=== PATIENT | male | born 1975 | race Caucasian/White ===

== ENCOUNTER → 2017-12-01 | Outpatient (CLI) | payer OTHER | END | disposition home or self-care (01) | LOC: PF 07:50 | DX: R06.02 Shortness of breath (principal) | CPT/HCPCS: 94010; 94729 ==

== ENCOUNTER → 2019-05-19 | Day surgery (SDC) | payer OTHER ==
[~2019-05-19] MED LIST: IV RINGERS,LACTATED 1000ML 1,000 ML IV SCH; LIDOCAINE 2% PF 5 ML VIAL. ONE; PROPOFOL 60 ML IV ONE
[2019-05-19 11:36] VITALS: BP 140/64
--- NOTE | 2019-05-23 10:07 | PATHOLOGY ---
[facility] Accession Number: [id number] . 01 Material submitted: . hepatic flexure - HEPATIC FLEXURE POLYP . 01 Clinical history: . Abdominal pain. . 02 Diagnosis: Colon biopsies, hepatic flexure polyp: - Tubular adenoma. . ([facility]; 05/22/2019) S 05/22/2019 1556 Local . 02 Comment: There is no high grade dysplasia or evidence of malignancy. . 02 Electronically signed: . Papo Oh MD, Pathologist NPI- [id number] . 01 Gross description: . Received in formalin labeled "Teddy Ponce, hepatic flexure polyp" is a 1.4 x 0.8 x 0.1 cm aggregate of smart-brown mucosa fragments. The specimen is submitted in A1. ([facility]; 05/20/2019) [facility] 05/20/2019 1004 Local . 02 Pathologist provided ICD-10: D12.3 . 02 CPT . 119515 Specimen Comment: A courtesy copy of this report has been sent to [phone], [phone] Specimen Comment: [id number] Specimen Comment: Report sent to and Performed at: 01 [facility] [address], [place], [place] [id number] MD Jair Valentine MD Phone: [phone] Performed at: 02 [facility] [address] [place], [place] [id number] MD Papo Oh MD Phone: [phone]
== END ==
LOC: ENDOS 09:38
PROVIDERS: ATTEND Internal Medicine Gastroenterology
DX: R19.4 Change in bowel habit (principal); D12.3 Benign neoplasm of transverse colon; K57.30 Diverticulosis of large intestine without perforation or abscess without bleeding; K64.0 First degree hemorrhoids; K21.9 Gastro-esophageal reflux disease without esophagitis; K58.9 Irritable bowel syndrome, unspecified; K25.9 Gastric ulcer, unspecified as acute or chronic, without hemorrhage or perforation; E11.9 Type 2 diabetes mellitus without complications; Z88.0 Allergy status to penicillin; Z72.89 Other problems related to lifestyle; Z98.890 Other specified postprocedural states; Z98.52 Vasectomy status; Z79.84 Long term (current) use of oral hypoglycemic drugs
CPT/HCPCS: 45385; 82962; 88305; J2001; J2704; 45380

== ENCOUNTER 2020-09-10 05:26 | Emergency (ER) | payer OTHER ==
[~2020-09-10] VITALS: Ht 182.9 cm; Wt 125.0 kg
[2020-09-10 06:09] LABS: BASO % 0 % (0-3); CALCIUM 8.8 mg/dL (8.5-10.1); CREATININE 1.1 mg/dL (0.7-1.3); EOS # 0.1 x10^3/uL (0.0-0.7); EOS % 1 % (0-3); GFR 72.7; HEMATOCRIT 51.7 % (39.0-53.0); LYMPH % 35 % (24-48); MEAN CORPUSCULAR HEMOGLOBIN 32 pg (25-35); MEAN CORPUSCULAR HGB CONC 35 g/dL (31-37); MEAN CORPUSCULAR VOLUME 91 fL (79-100); MONO # 0.6 x10^3/uL (0.0-1.1); MONO % 7 % (0-9); NEUT # 4.9 x10^3/uL (1.8-7.7); NEUT % 57 % (31-73); PLATELET COUNT 137 x10^3/uL (140-400); POTASSIUM 3.9 mmol/L (3.5-5.1); RED BLOOD COUNT 5.67 x10^6/uL (4.30-5.70); RED CELL DISTRIBUTION WIDTH 13.2 % (11.5-14.5); WHITE BLOOD COUNT 8.7 x10^3/uL (4.0-11.0)
[2020-09-10 06:15] LABS: ALBUMIN 3.5 g/dL (3.4-5.0); ALBUMIN/GLOBULIN RATIO 1.1 (1.0-1.7); TOTAL BILIRUBIN 0.3 mg/dL (0.2-1.0); TOTAL PROTEIN 6.6 g/dL (6.4-8.2)
--- NOTE | 2020-09-10 07:11 | PHYS DOC ---
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 Patient has history of chronic low back pain due to disc problem. He went to chiropractor 3 weeks ago for adjustment, afterwards the back pain has become more severe. Patient complained of severe pain whenever he walked. Patient said he could not walk much because of pain. Patient denies any bowel or bladd er incontinence. Patient says he has some tingling sensation to his legs bilaterally. Patient went to [place] recently, the long drive after his back with more. Patient said for the last 4 days he has been in bed most of the time, his family have to help him to the bathroom and change his clothes. Patient also has intermittent episodes of blood in his stool. Patient denies any abdominal pain. Patient was evaluated at [facility] in August for bloody stool, and hemoglobin was normal then. Patient is not on any blood thinner. Patient denies any cough, no fever, no trouble breathing, no chest pain. Review of Systems: Review of Systems: Constitutional: Denies fever or chills. [] Eyes: Denies change in visual acuity. [] HENT: Denies nasal congestion or sore throat. [] Respiratory: Denies cough or shortness of breath. [] Cardiovascular: Denies chest pain or edema. [] GI: Denies abdominal pain, nausea, vomiting, positive for trace of blood in his stool. Musculoskeletal: Positive for back pain. Integument: Denies rash. [] Neurologic: Denies headache, focal weakness or sensory changes. [] Endocrine: Denies polyuria or polydipsia. [] Lymphatic: Denies swollen glands. [] Psychiatric: Denies depression or anxiety. [] Heart Score: C/O Chest Pain: N/A Risk Factors: Risk Factors: DM, Current or recent (<one month) smoker, HTN, HLP, family history of CAD, obesity. Risk Scores: Score 0 - 3: 2.5% MACE over next 6 weeks - Discharge Home Score 4 - 6: 20.3% MACE over next 6 weeks - Admit for Clinical Observation Score 7 - 10: 72.7% MACE over next 6 weeks - Early Invasive Strategies Allergies: Allergies: Allergies Coded Allergies Type Severity Reaction Last Updated Verified Penicillins Allergy Unknown Anaphylaxis 05/19/19 Yes Physical Exam: PE: Constitutional: Well developed, well nourished, no acute distress, non-toxic appearance. [] HENT: Normocephalic, atraumatic, bilateral external ears normal, oropharynx moist, no oral exudates, nose normal. [] Eyes: PERRLA, EOMI, conjunctiva normal, no discharge. [] Neck: Normal range of motion, no tenderness, supple, no stridor. [] Cardiovascular:Heart rate regular rhythm, no murmur [] Lungs & Thorax: Bilateral breath sounds clear to auscultation [] Abdomen: Bowel sounds normal, soft, no tenderness, no masses, no pulsatile masses. [] Skin: Warm, dry, no erythema, no rash. [] Back: There is no CVA tenderness to palpation, strength midline tender to palpation at L4 L5-S1 area, there is no bony step-off. Extremities: No tenderness, no cyanosis, no clubbing, ROM intact, no edema. Patient can move his extremity without any problem when he is lying in bed. Neurologic: Alert and oriented X 3, normal motor function, normal sensory function, no focal deficits noted. [] Psychologic: Affect normal, judgement normal, mood normal. [] Current Patient Data: Labs: Laboratory Tests Test 09/10/20 05:40 White Blood Count 8.7 x10^3/uL (4.0-11.0) Red Blood Count 5.67 x10^6/uL (4.30-5.70) Hemoglobin 18.0 g/dL (13.0-17.5) H Hematocrit 51.7 % (39.0-53.0) Mean Corpuscular Volume 91 fL (79-100) Mean Corpuscular Hemoglobin 32 pg (25-35) Mean Corpuscular Hemoglobin Concent 35 g/dL (31-37) Red Cell Distribution Width 13.2 % (11.5-14.5) Platelet Count 137 x10^3/uL (140-400) L Neutrophils (%) (Auto) 57 % (31-73) Lymphocytes (%) (Auto) 35 % (24-48) Monocytes (%) (Auto) 7 % (0-9) Eosinophils (%) (Auto) 1 % (0-3) Basophils (%) (Auto) 0 % (0-3) Neutrophils # (Auto) 4.9 x10^3/uL (1.8-7.7) Lymphocytes # (Auto) 3.0 x10^3/uL (1.0-4.8) Monocytes # (Auto) 0.6 x10^3/uL (0.0-1.1) Eosinophils # (Auto) 0.1 x10^3/uL (0.0-0.7) Basophils # (Auto) 0.0 x10^3/uL (0.0-0.2) Sodium Level 138 mmol/L (136-145) Potassium Level 3.9 mmol/L (3.5-5.1) Chloride Level 102 mmol/L (98-107) Carbon Dioxide Level 32 mmol/L (21-32) Anion Gap 4 (6-14) L Blood Urea Nitrogen 20 mg/dL (8-26) Creatinine 1.1 mg/dL (0.7-1.3) Estimated GFR (Cockcroft-Gault) 72.7 BUN/Creatinine Ratio 18 (6-20) Glucose Level 217 mg/dL (70-99) H Calcium Level 8.8 mg/dL (8.5-10.1) Total Bilirubin 0.3 mg/dL (0.2-1.0) Aspartate Amino Transferase (AST) 24 U/L (15-37) Alanine Aminotransferase (ALT) 39 U/L (16-63) Alkaline Phosphatase 107 U/L (46-116) Total Protein 6.6 g/dL (6.4-8.2) Albumin 3.5 g/dL (3.4-5.0) Albumin/Globulin Ratio 1.1 (1.0-1.7) Laboratory Tests 09/10/20 05:40 Laboratory Tests 09/10/20 05:40 Vital Signs: Vital Signs Date Time Temp Pulse Resp B/P (MAP) Pulse Ox O2 Delivery O2 Flow Rate FiO2 09/10/20 06:31 78 18 142/75 (97) 95 Room Air 09/10/20 05:30 97.6 97.6 EKG: EKG: [] Radiology/Procedures: Radiology/Procedures: [][facility] [address] [place] [address] IMAGING REPORT Signed PATIENT: RAMESH BECERRA ACCOUNT: [id number] : 1975 LOCATION: ER AGE: 44 SEX: M EXAM STATUS: REG ER ORD. PHYSICIAN: CEDRIC MALDONADO DO REASON: lower back pain after chiropractor adjustment 3 weeks ago PROCEDURE: LUMBAR SPINE 2-3V XR LUMBAR SPINE 2-3V DATE: 09/10/2020 7:22 AM INDICATION: lower back pain after chiropractor adjustment 3 weeks ago COMPARISON: None. FINDINGS: Five non-rib bearing lumbar-type vertebral bodies are present. Bones/Alignment: No evidence of acute compression fracture. There is no listhes is. Joints: Mild degenerative disc disease. Miscellaneous: None. IMPRESSION: No evidence of acute compression fracture. Electronically signed by: Hair Matos MD (09/10/2020 8:14 AM) [id number] DICTATED and SIGNED BY: HAIR MATOS MD DATE: 09/10/20 [id number] Course & Med Decision Making: Course & Med Decision Making Pertinent Labs and Imaging studies reviewed. (See chart for details) Patient is a 44-year-old male who presented to ER due to chronic low back pain. Patient claimed that he could not walk because of pain. X-ray did not show any acute problem, patient was observed to walk to the bathroom using the toilet without any problem without any assistance. Patient is scheduled to follow-up with a neurologist tomorrow Dr. Elsy Zamora. [place] Disclaimer: Dheeraj Disclaimer: This electronic medical record was generated, in whole or in part, using a voice recognition dictation system. Departure Departure Impression: Primary Impression: Lower back pain Disposition: 01 DC HOME SELF CARE/HOMELESS Condition: IMPROVED Referrals: OSCAR LEVINE MD (PCP) ELSY CORONEL MD PLEASE FOLLOW UP WITH YOUR DOCTOR SCHEDULED FOR TOMORROW. Patient Instructions: Back Pain, Adult Additional Instructions: Thank you for visiting our Emergency Department. We appreciate you trusting us with your care. If any additional problems come up don't hesitate to return to visit us. Please follow up with your primary care provider so they can plan additional care if needed and know about the problem that you had. If symptoms worsen come back to the Emergency Department. Any concerning symptoms that start such as chest pain, shortness of air, weakness or numbness on one side of the body, running high fevers or any other concerning symptoms return to the ER. Scripts Cyclobenzaprine Hcl (CYCLOBENZAPRINE HCL) 10 Mg Tablet 1 TAB PO TID PRN for MUSCLE SPASMS, #20 TAB Prov: CEDRIC MALDONADO DO 09/10/20 Tramadol Hcl (TRAMADOL HCL) 50 Mg Tablet 50 MG PO Q6HRS PRN for PAIN, #20 TAB Prov: CEDRIC MALDONADO DO 09/10/20 CEDRIC MALDONADO DO Sep 10, 2020 07:11
--- NOTE | 2020-09-10 08:16 | RAD ---
XR LUMBAR SPINE 2-3V DATE: 09/10/2020 7:22 AM INDICATION: lower back pain after chiropractor adjustment 3 weeks ago COMPARISON: None. FINDINGS: Five non-rib bearing lumbar-type vertebral bodies are present. Bones/Alignment: No evidence of acute compression fracture. There is no listhesis. Joints: Mild degenerative disc disease. Miscellaneous: None. IMPRESSION: No evidence of acute compression fracture. Electronically signed by: Shailesh Matos MD (09/10/2020 8:14 AM) [id number]
[2020-09-10] MEDS ORDERED: ORPHENADRINE CITRATE 60 MG/2 ML VIAL. IM ONE (09:30)
[2020-09-10] MEDS ORDERED: MORPHINE SULFATE 4 MG/ML VIAL. IV ONE (09:30)
[2020-09-10 09:31] VITALS: BP 143/86
[2020-09-10] MEDS ORDERED: ONDANSETRON ODT 4 MG TAB.RAPDIS. ONE (10:10)
[2020-09-10] MEDS ORDERED: ONDANSETRON ODT 4 MG TAB.RAPDIS. PO ONE ×2 (10:15)
[2020-09-10] MEDS ORDERED: CYCL10TA2 PO (10:18)
[2020-09-10] MEDS ORDERED: TRAM50TA PO (10:18)
== END 2020-09-10 10:21 | disposition home or self-care (01) ==
LOC: ER 05:26
DX: M54.5 Low back pain (principal); G89.29 Other chronic pain; E11.9 Type 2 diabetes mellitus without complications; F17.200 Nicotine dependence, unspecified, uncomplicated; Z90.89 Acquired absence of other organs; Z88.0 Allergy status to penicillin
CPT/HCPCS: 36415; 72100; 80053; 85025; 86850; 86900; 86901; 96372; 96374; 99285; J2270; J2360

== ENCOUNTER → 2020-10-03 | Outpatient (CLI) | payer OTHER ==
[2020-09-10 09:31] VITALS: BP 143/86
[~2020-10-03] MED LIST changes: +ASPI-630 PO; +CYCL10TA2 PO; +DAPA5TAB PO; -IV RINGERS,LACTATED 1000ML 1,000 ML IV SCH; -LIDOCAINE 2% PF 5 ML VIAL. ONE; -PROPOFOL 60 ML IV ONE; +TRAM50TA PO
--- NOTE | 2020-10-03 13:03 | PDOC1 ---
INITIAL PAIN CONSULT DATE OF SERVICE: DOS: DATE: 10/03/20 TIME: 12:55 CHIEF COMPLAINT: Chief Complaint: Low back and bilateral lower extremity pain left greater than right HISTORY OF PRESENT ILLNESS: 44-year-old male presents history of pain low back bilateral lower extremities for about 2 months after having some chiropractic treatment for his back pain the pain got much worse and has began spreading down to the lower extremities more on the left than the right but present bilaterally patient reports it is difficult to walk he is having difficulty with any weightbearing currently getting worse over the past 2 months patient reports that it is worse with anthony ding walking changing positions trying to get up in the morning is awakening from sleep frequently at least every 2 hours patient reports it does affect his bowel bladder control no incontinence but has had some increased urgency with urination patient reports it does affect his ability walk significantly he is using a walker or crutches when he can and has a crutch with him today. Patient has done chiropractic manipulations also doing stretching strengthening exercises currently which helped temporarily as well taking tramadol as well as [id number] Advil and Tylenol without significant reduction in pain. Patient reports the pain is across the low back and the bilateral lower extremities posterior gluteus posterior lateral thigh anterior thigh especially on the left medial lower legs into the calves as well bilaterally patient reports is constant sharp stabbing in the back shooting and throbbing in the legs tingling in the leg with numbness as well changes with activity cramping in the back also. Patient reports no loss of motor function but significant fatigability and significant instability with walking and standing even with his crutches or walker. She did have an MRI scan of the lumbar spine dated October 02, 2020 showing multilevel degenerative change mild central canal stenosis at T11-12 and effacement of left lateral recess at L2-3 with moderate bilateral foraminal stenosis and effacement of the left lateral recess at L3-4 and mild bilateral foraminal stenosis and mild central canal stenosis with effacement of the left lateral recess at L4-5 patient has left greater than right foraminal to extrarenal disc retrusion at L3-4 and L4-5 shows broad-based left paracentral to lateral recess disc protrusion with right foraminal to extraforaminal disc pro trusion as well. PAST MEDICAL HISTORY: PMH: Arthritis, type 2 diabetes, cigarette smoking PREVIOUS SURGERIES: Past Surgical Hx: Appendectomy 2017, tonsillectomy as a child CURRENT MEDICATIONS: Current Meds: Active Scripts Medications Dose Route/Sig Max Daily Dose Days Date Category Aspirin 81 Mg Tab.chew 1 Tab PO DAILY 10/03/20 Reported Farxiga (Dapagliflozin Propanediol) 5 Mg Tablet 5 Mg PO DAILY 10/03/20 Reported Cyclobenzaprine Hcl 10 Mg Tablet 1 Tab PO TID PRN 09/10/20 Rx Tramadol Hcl 50 Mg Tablet 50 Mg PO Q6HRS PRN 09/10/20 Rx ALLERGIES; Allergies: Coded Allergies: Penicillins (Verified Allergy, Unknown, Anaphylaxis, 05/19/19) FAMILY HISTORY: Family Hx: No major medical problems or conditions that he is aware of SOCIAL HISTORY: Social Hx: Patient smokes about 1 pack cigarettes a day and has a past 25 years smokes marijuana daily does not drink alcohol is lives with his spouse lives locally in [facility] works as an trim mechanic. REVIEW OF SYSTEMS: ROS: Positive for those items mentioned in history of present illness, all systems are reviewed, otherwise negative ,and are complete full and well-documented on patient's chart. PHYSICAL EXAM: VS: Blood pressure is 155/93 pulse 94 respirations 18 temperature 98.6 F height is 5 foot 11 inches weight is 290 pounds PE: PHYSICAL EXAMINATION: GENERAL: The patient is awake, alert, oriented, appropriate, very pleasant demeanor, patient accompanied by his . HEENT: Shows normocephalic, atraumatic. Extraocular movements are intact and symmetrical. Oral cavity: Mucous membranes moist and pink. Dentition is intact. NECK: Shows anterior throat supple without palpable lymphadenopathy noted. Swallow reflex symmetrical. CHEST: Shows normal on inspection. Breath sounds are clear bilaterally, no rales rhonchi or wheezes auscultated. HEART: Shows S1, S2 clear. No murmurs auscultated. ABDOMEN: Soft, nontender, nondistended, obese. No palpable organomegaly is noted. No rebound or guarding demonstrated. BACK: Shows spine grossly in the midline. Normal-appearing cervical lordotic curvature. There is slightly increased thoracic kyphosis, some minor flattening of the lumbar lordotic curvature. Lumbar paraspinous muscles show symmetrical on inspection, on palpation shows some moderate tenderness diffusely throughout the upper, middle and lower distribution of the paraspinous muscles bilaterally and also into the lower thoracic paraspinous musculature, firm and tender, but without specific trigger points, without radiation of pain. The patient has good rotational motion of the lumbar spine, both laterally as well as extension and flexion without significant difficulty. EXTREMITIES: Lower extremities show deep tendon reflexes 1+ in the patellar and tendo calcaneus tendons. Motor exam is 4 on a scale of 5 with right dorsiflexion, extension, quadriceps and hamstring flexion and 5/5 on the left. Peripheral pulses are 1 posterior tibial. No peripheral edema is noted bilate rally. Lower extremities are warm and dry to touch, equal in color and appearance. Straight leg raise noted to be positive bilaterally at approximately 45 degrees decreased with knee flexion. Gaenslen's and Sheng's maneuvers are negative bilaterally. The patient is able to stand, but needs assistance getting up from a seated position using the arms of the chair, has an unstable gait which is slightly wide stance and is using a crutch to ambulate on visit today. SKIN: Shows warm and dry, good turgor. No edema. No sores, rashes or bruising throughout. IMPRESSION: Impression: 44-year-old male with with history of low back bilateral lower extremity pain in a radicular fashion following an L4-5 dermatomal distribution. MRI scan lumbar spine as noted Arthritis Type 2 diabetes Cigarette smoking Plan: Options were discussed with patient patient spouse who accompanied him at his visit today. We discussed medication management continue physical therapies and interventional techniques. Patient like to pursue interventional techniques. We discussed a lumbar epidural steroid injection using description as well as anatomical models to describe the procedure. Patient will wait for preauthorization with his insurance provider, once this is obtained we will plan on translaminar approach L4-5 level lumbar epidural steroid injection. In meantime patient will continue with stretching strength exercises as well as oral analgesics as currently. TRES TREJO MD Oct 03, 2020 13:03
== END | disposition home or self-care (01) ==
LOC: PNCL 10:22
PROVIDERS: ATTEND Anesthesiology
DX: M54.5 Low back pain (principal); M79.605 Pain in left leg; M79.604 Pain in right leg; M19.90 Unspecified osteoarthritis, unspecified site; E11.9 Type 2 diabetes mellitus without complications; G47.30 Sleep apnea, unspecified; K21.9 Gastro-esophageal reflux disease without esophagitis; F17.210 Nicotine dependence, cigarettes, uncomplicated; Z79.899 Other long term (current) drug therapy; Z98.890 Other specified postprocedural states; Z88.0 Allergy status to penicillin
CPT/HCPCS: G0463

== ENCOUNTER → 2020-10-17 | Outpatient (CLI) | payer OTHER ==
[~2020-10-17] MED LIST changes: +IOHEXOL 180 MG/ML 10 ML VIAL. ONE; +methylPREDNISolone ACETATE 40 MG/ML VIAL. ONE; +methylPREDNISolone ACETATE 80 MG/ML VIAL. ONE
--- NOTE | 2020-10-17 10:48 | PDOC ---
Progress Note - Pain Clinic Date of Service: DOS: DATE: 10/17/20 TIME: 10:46 Diagnosis: Dx: Lumbar radiculopathy with lumbar degenerative disc disease and lumbar spinal stenosis History or Present Illness: HPI: 44-year-old male returns for follow-up status post initial evaluation preauthorization for lumbar epidural steroid injection. Patient is obtained that now would like to proceed. Patient reports still in the low back bilateral lower extremities posterior gluteus posterior lateral thigh lateral anterior thigh anterior medial thighs and calves rated as a 9 on scale 10 is worse for the past week 5-8 on average and affords least is a 5 today patient reports no new motor or sensory deficit still significant pain with walking standing changing positions better with sitting or laying down generally awaken from sleep at least 2-3 times a night patient reports no new motor or sensory deficits no new bowel or bladder incontinence scribes pain is tingling and burning also sharp in the low back and radiating the lower extremities states can be shooting unbearable at times. Physical Exam: VS: Blood pressure is 157/87 pulse 91 respirations 18 temperature 98 F weight is 288 pounds PE: PHYSICAL EXAMINATION: GENERAL: The patient is awake, alert, oriented, appropriate, very pleasant demeanor HEENT: Shows normocephalic, atraumatic. Extraocular movements are intact and symmetrical. NECK: Shows anterior throat supple without palpable lymphadenopathy noted. Swallow reflex symmetrical. CHEST: Shows normal on inspection. Breath sounds are clear bilaterally. HEART: Shows S1, S2 clear. No murmurs auscultated. ABDOMEN: Soft, nontender, nondistended, obese. No palpable organomegaly is noted. No rebound or guarding demonstrated. BACK: Shows spine grossly in the midline. Normal-appearing cervical lordotic curvature. There is slightly increased thoracic kyphosis, some minor flattening of the lumbar lordotic curvature. Lumbar paraspinous muscles show symmetrical on inspection, on palpation shows some moderate tenderness diffusely throughout the upper, middle and lower distribution of the paraspinous muscles, but without specific trigger points, without radiation of pain. The patient has good rotational motion of the lumbar spine, both laterally as well as extension and flexion without significant difficulty. EXTREMITIES: Lower extremities show deep tendon reflexes 1+ in the patellar and tendo calcaneus tendons. Motor exam is full on a scale of 5 with right dorsiflexion, extension, quadriceps and hamstring flexion and 5/5 on the left. Peripheral pulses are 1+ posterior tibial. No peripheral edema is noted bila terally. Lower extremities are warm and dry to touch, equal in color and appearance. SKIN: Shows warm and dry, good turgor. No edema. No sores, rashes or bruising throughout. Procedure: Procedure: Options were discussed with the patient. Patient's old chart was reviewed his current medication regimen updated current review of systems updated today as well. We will proceed with a lumbar epidural steroid injection today with fluoroscopic guidance. Risks were discussed including but not limited to: Bleeding, infection, possibility of epidural hematoma and subsequent neurological compromise, dural puncture, headaches, spinal cord and/or nerve damage, side effects of steroid medication, and poor results regarding pain control. Patient understands and wished to proceed. Patient will return to clinic in approximate 2 weeks for follow-up, was counseled as to return appointment active level and side effects to be aware of. Medication Injected: Med Injected: Procedure is lumbar epidural steroid injection under local anesthetic using sterile prep and drape at the L4-5 level using C-arm fluoroscopic guidance in both AP and lateral views medications injected is 120 mg Depo-Medrol +10mL preservative-free normal saline and 2 mL contrast- condition at discharge is stable patient tolerated procedure well had no complications. Condition at Discharge: Condition at Discharge: Condition at discharge stable, patient tolerated procedure well and had no complications. TRES TREJO MD October 17, 2020 10:48
== END | disposition home or self-care (01) ==
LOC: PNCL 09:59
PROVIDERS: ATTEND Anesthesiology
DX: M51.16 Intervertebral disc disorders with radiculopathy, lumbar region (principal); M48.061 Spinal stenosis, lumbar region without neurogenic claudication; K21.9 Gastro-esophageal reflux disease without esophagitis; E66.9 Obesity, unspecified; E11.9 Type 2 diabetes mellitus without complications; F17.210 Nicotine dependence, cigarettes, uncomplicated; Z79.899 Other long term (current) drug therapy; Z79.82 Long term (current) use of aspirin; Z98.890 Other specified postprocedural states; Z88.0 Allergy status to penicillin
CPT/HCPCS: 62323; J1030; J1040; Q9965

== ENCOUNTER → 2021-06-12 | Outpatient (CLI) | payer OTHER ==
[~2021-06-12] MED LIST changes: +CYCL10TA19 PO; -CYCL10TA2 PO; +IBUP200T58 PO; -IOHEXOL 180 MG/ML 10 ML VIAL. ONE; -methylPREDNISolone ACETATE 40 MG/ML VIAL. ONE; -methylPREDNISolone ACETATE 80 MG/ML VIAL. ONE
--- NOTE | 2021-06-12 08:42 | PDOC ---
Progress Note - Pain Clinic Date of Service: DOS: DATE: 06/12/21 TIME: 08:36 Diagnosis: Dx: Lumbar radiculopathy with lumbar degenerative disease and lumbar spinal stenosis History or Present Illness: HPI: 45-year-old male last seen October 17, 2020 with lumbar epidural steroid injection with about 75% improvement for the first month or so following the injection patient reports the pain gradually returned to the point where he was having difficulty getting out of bed and missed his last 2 scheduled appointments because of the pain most recently May 2021 patient reports that the pain returned after about a month in the low back and into the right lower extremity posterior gluteus posterior lateral thigh lateral anterior thigh anteromedial thigh medial lower leg as well as across the back patient reports its difficult now with walking but he is able to get around to some extent patient reports no loss of motor function but significant fatigability of the right lower extremity patient reports after the injection though he is increasing his distance walking doing work activities household activities travel with greater ease sleeping much better now it is affecting all of these activities significantly patient reports takes about hour to get ready in the morning because is difficult to put on his close issue secondary to the pain patient reports he is waking up from sleep about every 1-1/2 hours as well patient rates his pain as 8 on scale 10 is worse over the past week for an average to its least is a 7 today patient ports sharp tight shooting tingling burning cramping can be severe on and off in intensity in the right lower extremity and the low back. Patient continues to do stretching and strengthening exercises from previous physical therapy as well as walking as tolerated using a cane at times but does not have that with him today. Patient has been applying heat packs as well as ice packs to the low back and hip which are helpful but only temporarily as well. Patient also taking [id number] analgesics Tylenol and ibuprofen ibuprofen seems to be helping more than the Tylenol but not to a great extent either. We reviewed patient's MRI scan with him showing significant broad-based protrusion at L45 with bilateral foraminal stenosis and abutment of near abutment of the exiting right greater than left L4 nerve roots. Patient reports no loss of motor function but significant fatigability specially the right lower extremity weakness in both legs as well. Patient reports no bowel or bladder incontinence. Physical Exam: VS: Blood pressure is 167/99 pulse 91 respirations 20 temperature is 98.5 F weight is 306 pounds PE: PHYSICAL EXAMINATION: GENERAL: The patient is awake, alert, oriented, appropriate, very pleasant in demeanor HEENT: Shows normocephalic, atraumatic. Extraocular movements are intact and symmetrical. Oral cavity: Mucous membranes moist and pink. Dentition is intact. NECK: Shows anterior throat supple without palpable lymphadenopathy noted. Swallow reflex symmetrical. CHEST: Shows normal on inspection. Breath sounds are clear bilaterally, distant but no rales or rhonchi auscultated. HEART: Shows S1, S2 clear. No murmurs auscultated. ABDOMEN: Soft, nontender, nondistended. No palpable organomegaly is noted. BACK: Shows spine grossly in the midline. Normal-appearing cervical lordotic curvature. There is slightly increased thoracic kyphosis, some minor flattening of the lumbar lordotic curvature. Lumbar paraspinous muscles show symmetrical on inspection, on palpation shows some moderate tenderness diffusely throughout the upper, middle and lower distribution of the paraspinous muscles, but without specific trigger points, without radiation of pain. The patient has good rotational motion of the lumbar spine, both laterally as well as extension and flexion without significant difficulty. No tenderness over the spinous processes, sacrum or sacroiliac regions. EXTREMITIES: Lower extremities show deep tendon reflexes 1+ in the patellar and tendo calcaneus tendons. Motor exam is 4 on a scale of 5 with right dorsiflexion, extension, quadriceps and hamstring flexion and 5/5 on the left. Peripheral pulses are 1+ posterior tibial. No peripheral edema is noted bilaterally. Lower extremities are warm and dry to touch, equal in color and appearance. Straight leg raise noted to be positive on the right at approximately 40 degrees, decreased knee flexion left side is negative. SKIN: Shows warm and dry, good turgor. No edema. No sores, rashes or bruising throughout. Procedure: Procedure: Options were discussed with the patient. Vaginal chart was used current medication regimen updated current review of systems updated today as well. We will preauthorize patient for lumbar epidural steroid injection did very well after the first injection with pain returning out significantly and L4-5 dermatomal distribution in the right lower extremity. Once approved, patient will return for translaminar approach lumbar epidural steroid injection at the L4-5 level using fluoroscopic guidance. In the meantime patient will continue with stretching and strengthening exercises walking as tolerated as well as we will call in a Medrol Dosepak for him with instructions side effects were discussed with the medication. Medication Injected: Med Injected: None Condition at Discharge: Condition at Discharge: Condition at discharge is stable. TRES TREJO MD Jun 12, 2021 08:42
== END | disposition home or self-care (01) ==
LOC: PNCL 08:10
PROVIDERS: ATTEND Anesthesiology
DX: M51.16 Intervertebral disc disorders with radiculopathy, lumbar region (principal); M48.061 Spinal stenosis, lumbar region without neurogenic claudication; G47.30 Sleep apnea, unspecified; K21.9 Gastro-esophageal reflux disease without esophagitis; E11.9 Type 2 diabetes mellitus without complications; F17.210 Nicotine dependence, cigarettes, uncomplicated; Z79.899 Other long term (current) drug therapy; Z98.890 Other specified postprocedural states; Z88.0 Allergy status to penicillin; Z79.82 Long term (current) use of aspirin
CPT/HCPCS: 99212; G0463

== ENCOUNTER → 2021-06-26 | Outpatient (CLI) | payer OTHER ==
[~2021-06-26] MED LIST changes: +DAPA10TA PO
--- NOTE | 2021-06-26 09:02 | PDOC ---
Progress Note - Pain Clinic Date of Service: DOS: DATE: 06/26/21 TIME: 08:57 Diagnosis: Dx: Lumbar radiculopathy with lumbar degenerative disease and lumbar spinal stenosis Diabetes type 2 History or Present Illness: HPI: 45-year-old male returns with pain complaints in the low back and the right lower extremity in the posterior gluteus posterior lateral thigh lateral anterior thigh anteromedial thigh medial lower leg as well as into the foot on the right side patient reports its getting worse with walking standing changing positions patient reports his pain is an 8 on scale 10 is worse over the past week 6 on average 4 to [place] is a 6 today patient reports that sharp and tight in the back shooting the leg tingling stabbing can be constant and severe with walking and standing patient reports is better with sitting or lying down but wakes him from sleep about every 3-4 hours over the past week. Patient reports no loss of motor function with significant fatigability in the right lower extremity. Patient also has complaints of significant abdominal pain and radiating pain into the right groin which is new patient was seen in the ER last week and had a CT scan which we reviewed with him today showing no significant acute or abnormal findings. Patient also reports some increased urinary frequency and even some degree of incontinence with the bladder when the pain in his back is at its worst. Patient reports he has had multiple CT scans of the abdomen and they all come out normal and he notices the pain more when his back and leg is hurting than otherwise. Patient also reports blood sugars elevated as he is type II diabetic, and discussed the importance of monitoring this after today's injection as the steroid medication will elevate the blood sugar significantly elevated and persistently elevated to check with his primary physician for additional medication if necessary to control the blood sugar. P atient voices understanding. Physical Exam: VS: Blood pressure is 137/89 pulse 94 respirations 20 temperature 98.1 F weight is 308 pounds. PE: PHYSICAL EXAMINATION: GENERAL: The patient is awake, alert, oriented, appropriate, very pleasant in demeanor HEENT: Shows normocephalic, atraumatic. Extraocular movements are intact and symmetrical. Oral cavity: Mucous membranes moist and pink. Dentition is intact. NECK: Shows anterior throat supple without palpable lymphadenopathy noted. Swallow reflex symmetrical. CHEST: Shows normal on inspection. Breath sounds are clear bilaterally, coarse but no rales or rhonchi auscultated. HEART: Shows S1, S2 clear. No murmurs auscultated. ABDOMEN: Soft, nontender, nondistended, obese. No palpable organomegaly is noted. BACK: Shows spine grossly in the midline. Normal-appearing cervical lordotic curvature. There is slightly increased thoracic kyphosis, some minor flattening of the lumbar lordotic curvature. Lumbar paraspinous muscles show symmetrical on inspection, on palpation shows some moderate tenderness diffusely throughout the upper, middle and lower distribution of the paraspinous muscles, but without specific trigger points, without radiation of pain. The patient has good rotational motion of the lumbar spine, both laterally as well as extension and flexion without significant difficulty. EXTREMITIES: Lower extremities show deep tendon reflexes 1+ in the patellar and tendo calcaneus tendons. Motor exam is 4 on a scale of 5 with right dorsiflexion, extension, quadriceps and hamstring flexion and 5/5 on the left. Peripheral pulses are 1+ posterior tibial. No peripheral edema is noted bilaterally. Lower extremities are warm and dry. SKIN: Shows warm and dry, good turgor. No edema. No sores, rashes or bruising throughout. Procedure: Procedure: Options were discussed with patient. Patient's old chart was reviewed his current medication regimen updated current review of systems updated today as well. We will proceed with a lumbar epidural steroid injection today with fluoroscopic guidance. Risks were discussed including but not limited to: Bleeding, infection, possibility of epidural hematoma and subsequent neurologica l compromise, dural puncture, headaches, spinal cord and/or nerve damage, side effects of steroid medication, and poor results regarding pain control. Patient understands and wished to proceed. Patient return to the clinic in approximate 2 weeks for follow-up, was counseled as return appointment, activity level, and side effects beware of, especially elevated blood glucose. Medication Injected: Med Injected: Procedure is lumbar epidural steroid injection under local anesthetic using sterile prep and drape at the L4-5 level using C-arm fluoroscopic guidance in both AP and lateral views medications injected is 120 mg Depo-Medrol +10mL preservative-free normal saline and 2 mL contrast- condition at discharge is stable patient tolerated procedure well had no complications. Condition at Discharge: Condition at Discharge: Condition at discharge stable, patient tolerated the procedure well and had no complications. TRES TREJO MD Jun 26, 2021 09:02
--- NOTE | 2021-06-26 09:03 | PDOC4 ---
Procedure Note: ICD 10 Code: ICD 10 Code: M54.16 M51.36 M48.06 Procedure Note: Patient was consented for lumbar epidural steroid injection with fluoroscopic guidance. Risks were discussed including but not limited to: Bleeding, infection, possibility of epidural hematoma and subsequent neurological compromise, dural puncture, headaches, spinal cord and/or nerve damage, side effects of steroid medication, and poor results regarding pain control. Patient understands and wished to proceed. Procedure is lumbar epidural steroid injection under local anesthetic using ster ile prep and drape at the L4-5 level using C-arm fluoroscopic guidance in both AP and lateral views medications injected is 120 mg Depo-Medrol +10mL preservative-free normal saline and 2 mL contrast- condition at discharge is stable patient tolerated procedure well had no complications. TRES TREJO MD Jun 26, 2021 09:03
== END | disposition home or self-care (01) ==
LOC: PNCL 08:21
PROVIDERS: ATTEND Anesthesiology
DX: M51.16 Intervertebral disc disorders with radiculopathy, lumbar region (principal); M48.061 Spinal stenosis, lumbar region without neurogenic claudication; E11.9 Type 2 diabetes mellitus without complications; G47.30 Sleep apnea, unspecified; K21.9 Gastro-esophageal reflux disease without esophagitis; F17.210 Nicotine dependence, cigarettes, uncomplicated; Z79.82 Long term (current) use of aspirin; Z79.899 Other long term (current) drug therapy; Z98.890 Other specified postprocedural states; Z88.0 Allergy status to penicillin
CPT/HCPCS: 62323

== ENCOUNTER → 2021-07-10 | Outpatient (CLI) | payer OTHER ==
--- NOTE | 2021-07-10 09:05 | PDOC ---
Progress Note - Pain Clinic Date of Service: DOS: DATE: 07/10/21 TIME: 08:59 Diagnosis: Dx: Lumbar radiculopathy with lumbar degenerative disc disease and lumbar spinal stenosis Diabetes type 2 History or Present Illness: HPI: 45-year-old male returns for follow-up status post lumbar epidural steroid injection x1 June 26, 2021. Patient reports about 75% improvement and still currently improved with pain low back and right lower extremity still some pain in the low back and the right leg but the twitching sensation is now gone out of the leg he still having some leg cramps which started few days after the injection but are still present patient reports it is a cramping sensation in the back and the right leg posterior gluteus posterior lateral thigh lateral anterior thigh anteromedial thigh and medial and posterior calf on the right side much better with standing walking patient has been improving his distance walking doing household activities especially work activities with greater ease and comfort as he is on his feet most of his working day as patient works as an automotive production worker. Patient reports he has been tolerating activity much better much greater duration with walking especially standing with greater ease and comfort is also decreasing the amount of Advil that he has been taking significantly. Patient reports occasionally when he is on his feet he does "drag my foot some" on the right side but no overt motor loss no stumbling or falls. Patient scribes the pain is cramping in the back tingling burning the leg tightness shooting at times can be constant severe with standing for prolonged periods but again doing much better after the last injection. Patient rates his pain as a 5 on a scale 10 is worse over the past week 2 on average 1 its least is a 2 today. Prolonged sitting can exacerbate the pain but not the same degree as standing. Patient reports no bowel or bladder incontinence. Patient reports he is following up with his primary care physician today as his blood sugar has been consistently elevated and they are discussing new alternative treatment strategies for this. Physical Exam: VS: Blood pressure is 144/85 pulse 71 respirations 18 temperature 90.1 F weight is 299 pounds. PE: PHYSICAL EXAMINATION: GENERAL: The patient is awake, alert, oriented, appropriate, very pleasant in demeanor HEENT: Shows normocephalic, atraumatic. Extraocular movements are intact and symmetrical. Oral cavity: Mucous membranes moist and pink. Dentition is intact. NECK: Shows anterior throat supple without palpable lymphadenopathy noted. Swallow reflex symmetrical. CHEST: Shows normal on inspection. Breath sounds are clear bilaterally, distant and coarse but no rales or rhonchi auscultated. HEART: Shows S1, S2 clear. No murmurs auscultated. ABDOMEN: Soft, nontender, nondistended, obese. No palpable organomegaly is noted. BACK: Shows spine grossly in the midline. Normal-appearing cervical lordotic curvature. There is increased thoracic kyphosis, some mild flattening of the lumbar lordotic curvature. Lumbar paraspinous muscles show symmetrical on inspection, on palpation shows some moderate tenderness diffusely throughout the upper, middle and lower distribution of the paraspinous muscles, but without specific trigger points, without radiation of pain. The patient has good rotational motion of the lumbar spine, both laterally as well as extension and flexion without significant difficulty. No tenderness over the spinous processes, sacrum or sacroiliac regions. EXTREMITIES: Lower extremities show deep tendon reflexes 1+ in the patellar and tendo calcaneus tendons. Motor exam is 4 on a scale of 5 with right dorsiflexion, extension, quadriceps and hamstring flexion and 5/5 on the left. Peripheral pulses are 1+ posterior tibial. No peripheral edema is noted bilaterally. Lower extremities are warm and dry to touch, equal in color and appearance. Straight leg raise noted to be positive on the right about 40 degrees, left side is negative. SKIN: Shows warm and dry, good turgor. No edema. No sores, rashes or bruising throughout. Procedure: Procedure: Options were discussed with the patient. Patient's old chart was reviewed his current medication regimen updated current review of systems updated today as well. Patient with 75% improvement in the low back right radicular pain after injection. We will preauthorize patient for a second lumbar epidural steroid injection he still has clinical radiculopathy in the right side and L4-5 casper matomal distribution. Once approved, patient will return for translaminar approach at L4-5 level lumbar epidural steroid injection with fluoroscopic guidance. Meantime, patient will continue with stretching and strength exercises oral analgesics as currently. Patient again will follow up with his primary care physician regarding blood sugar management. Medication Injected: Med Injected: None Condition at Discharge: Condition at Discharge: Condition at discharge is stable. TRES TREJO MD Jul 10, 2021 09:05
== END | disposition home or self-care (01) ==
LOC: PNCL 08:38
PROVIDERS: ATTEND Anesthesiology
DX: M51.16 Intervertebral disc disorders with radiculopathy, lumbar region (principal); M48.061 Spinal stenosis, lumbar region without neurogenic claudication; E11.9 Type 2 diabetes mellitus without complications; K21.9 Gastro-esophageal reflux disease without esophagitis; G47.30 Sleep apnea, unspecified; F17.210 Nicotine dependence, cigarettes, uncomplicated; Z79.899 Other long term (current) drug therapy; Z98.890 Other specified postprocedural states; Z79.82 Long term (current) use of aspirin; Z88.0 Allergy status to penicillin
CPT/HCPCS: 99212; G0463

== ENCOUNTER → 2021-08-01 | Outpatient (CLI) | payer OTHER ==
[~2021-08-01] MED LIST changes: +DEXAMETHASONE PRES.FREE 10 MG/ML VIAL. ONE; +DULA1.5P SQ; +IOHEXOL 180 MG/ML 10 ML VIAL. ONE
--- NOTE | 2021-08-01 09:30 | PDOC ---
Progress Note - Pain Clinic Date of Service: DOS: DATE: 08/01/21 TIME: 09:26 Diagnosis: Dx: Lumbar radiculopathy with lumbar degenerative disease and lumbar spinal stenosis History or Present Illness: HPI: 45-year-old male returns for follow-up status post lumbar epidural steroid injection x1 2021-06-26. Patient got 75% better pain relief significantly improved in the low back right lower extremity patient reports he has a new pain now in the left side mostly in the left hip and groin which has been noticeable for the last few weeks patient reports is not visual of any specific injury or accident that he is aware of but have some pain on the left side as well now as the right. Patient reports the right side is becoming more noticeable but still lasting fairly well with the last injection patient reports is an 8 on scale 10 is worse over the past week 6 on average to its least is a 2 today patient reports is worse with walking standing change positions better with sitting or lying down but it has been waking her from sleep about once every 4-5 hours over the last week or so. Patient reports prior to that he was sleeping fairly well patient reports the pain is sharp and aching in the back shooting the leg on the right and now some on the left as well in a similar distribution posterior gluteus thigh lateral thigh anterior thigh medial thigh patient reports burning cramping can be stabbing in the leg as well again worse on the right side but still some pain on the left intermittently which is new for him once again. Patient reports no bowel or bladder incontinence. Patient reports his blood sugars have still been high and normally run in the 200+ range his primary care physician has started him on Trulicity recently although has not had a follow-up to check on his effectiveness at this time. Physical Exam: VS: Blood pressure is 1 4 out of 103 pulse 83 respirations are 18 temperature is 97.8 F height is 6 foot weight is 296 pounds. PE: PHYSICAL EXAMINATION: GENERAL: The patient is awake, alert, oriented, appropriate, very pleasant in demeanor HEENT: Shows normocephalic, atraumatic. Extraocular movements are intact and symmetrical. Oral cavity: Mucous membranes moist and pink. Dentition is intact. NECK: Shows anterior throat supple without palpable lymphadenopathy noted. Swallow reflex symmetrical. CHEST: Shows normal on inspection. Breath sounds are clear bilaterally, coarse but no rales or rhonchi auscultated. HEART: Shows S1, S2 clear. No murmurs auscultated. ABDOMEN: Soft, nontender, nondistended. No palpable organomegaly is noted. No rebound or guarding demonstrated. BACK: Shows spine grossly in the midline. Normal-appearing cervical lordotic curvature. There is slightly increased thoracic kyphosis, some mild flattening of the lumbar lordotic curvature. Lumbar paraspinous muscles show symmetrical on inspection, on palpation shows some moderate tenderness diffusely throughout the upper, middle and lower distribution of the paraspinous muscles without specific trigger points, without radiation of pain. The patient has good rotational motion of the lumbar spine, both laterally as well as extension and flexion without significant difficulty. No tenderness over the spinous processes, sacrum or sacroiliac regions. EXTREMITIES: Lower extremities show deep tendon reflexes 2+ in the patellar and tendo calcaneus tendons. Motor exam is 4 on a scale of 5 with right dorsiflexion, extension, quadriceps and hamstring flexion and 5/5 on the left. Peripheral pulses are 1+ posterior tibial. No peripheral edema is noted bilaterally. Lower extremities are warm and dry. SKIN: Shows warm and dry, good turgor. No edema. No sores, rashes or bruising throughout. Procedure: Procedure: Options were discussed with the patient. Patient's old chart was reviewed his current medication regimen updated current review of systems updated today as well. We will proceed with a lumbar epidural steroid injection today with fluoroscopic guidance. Risks were discussed including but not limited to: Bleeding, infection, possibility of epidural hematoma and subsequent neurological compromise, dural puncture, headaches, spinal cord and/or nerve damage, side effects of steroid medication, and poor results regarding pain control. Patient understands and wished to proceed. She will return to the clinic in approximately 2 weeks for follow-up, was counseled as to return appointment, activity level, and side effect to be aware of. Medication Injected: Med Injected: Procedure is lumbar epidural steroid injection under local anesthetic using sterile prep and drape at the L4-5 level using C-arm fluoroscopic guidance in both AP and lateral views medications injected is 20 mg dexamethasone +10mL preservative-free normal saline and 2 mL contrast- condition at discharge is stable patient tolerated procedure well had no complications. Condition at Discharge: Condition at Discharge: Condition at discharge stable, paced tolerated the procedure well and had no complications. TRES TREJO MD Aug 01, 2021 09:30
--- NOTE | 2021-08-01 09:31 | PDOC4 ---
Procedure Note: ICD 10 Code: ICD 10 Code: M54.16 M51.36 M4 8.06 Procedure Note: Patient was consented for lumbar epidural steroid injection with fluoroscopic guidance. Risks were discussed including but not limited to: Bleeding, infection, possibility of epidural hematoma and subsequent neurological compromise, dural puncture, headaches, spinal cord and/or nerve damage, side effects of steroid medication, and poor results regarding pain control. Patient understands and wished to proceed. Procedure is lumbar epidural steroid injection under local anesthetic using sri rile prep and drape at the L4-5 level using C-arm fluoroscopic guidance in both AP and lateral views medications injected is 20 mg dexamethasone +10mL preservative-free normal saline and 2 mL contrast- condition at discharge is stable patient tolerated procedure well had no complications. TRES TREJO MD Aug 01, 2021 09:31
== END | disposition home or self-care (01) ==
LOC: PNCL 08:42
PROVIDERS: ATTEND Anesthesiology
DX: M51.16 Intervertebral disc disorders with radiculopathy, lumbar region (principal); M48.061 Spinal stenosis, lumbar region without neurogenic claudication; G47.30 Sleep apnea, unspecified; K21.9 Gastro-esophageal reflux disease without esophagitis; E11.9 Type 2 diabetes mellitus without complications; F17.210 Nicotine dependence, cigarettes, uncomplicated; Z79.82 Long term (current) use of aspirin; Z79.899 Other long term (current) drug therapy; Z98.890 Other specified postprocedural states; Z88.0 Allergy status to penicillin
CPT/HCPCS: 62323; J1100; Q9965

== ENCOUNTER → 2021-08-19 | Outpatient (CLI) | payer OTHER ==
[~2021-08-19] MED LIST changes: -DEXAMETHASONE PRES.FREE 10 MG/ML VIAL. ONE; -IOHEXOL 180 MG/ML 10 ML VIAL. ONE
--- NOTE | 2021-08-19 16:01 | NUR ---
Patient called wanting to speed up the process for getting authorized for his injection. Requesting a radha med visit states his back hurts to bad to come in. review medications, denies any new medical problems or allergies. denies constipation. patient transferred to Dr Yanes.
--- NOTE | 2021-08-19 16:35 | PDOC ---
Progress Note - Pain Clinic Date of Service: DOS: DATE: 08/19/21 TIME: 16:30 Diagnosis: Dx: Lumbar radiculopathy with lumbar degenerative disease and lumbar spinal stenosis History or Present Illness: HPI: Telemedicine visit today with patient with identity verified with full name as well as full date of , total time spent 14 minutes telephone visit voice only. 45-year-old male via telemedicine visit for follow-up regarding lumbar epidural steroid injection on August 01, 2021. Patient reports he did very well 80% i mprovement initially in the low back and right lower extremity. Patient reports did very well for about 2 weeks the pain is beginning to return now still much improved but returning in the low back and right lower extremity posterior gluteus posterior lateral thigh lateral anterior thigh anterior medial thigh and medial lower leg with walking standing changing positions. Patient reports initially was doing much better with distance walking doing household activities greater ease and comfort working activities travel with greater ease and sleeping better at night. Patient reports occasionally waking up now over the past few days but only about once over the past 3days and normally he sleeps fairly well patient reports is better with sitting or laying down worse with walking standing changing positions patient reports still radiating in the right lower extremity as described. Patient reports no bowel or bladder incontinence no loss of motor function but significant fatigability of the right leg with ambulation. Patient reports he is decreasing the amount of oral analgesics has been using over the last few weeks as well and is still not using those to the extent, as he was prior to the injections. Options were discussed with the patient, patient's old chart was reviewed as well. We will preauthorize patient for a lumbar epidural steroid injection as did very well after his last injection with about 80% improvement again the pain and radiculopathy returning now in a right L4-5 dermatomal distribution. Once a pproved, patient will return for translaminar approach L4-5 level lumbar epidural steroid injection with fluoroscopic guidance. In the meantime, patient will continue with stretching strength exercises as well as oral analgesics as necessary. Physical Exam: PE: TRES TREJO MD Aug 19, 2021 16:35
== END | disposition home or self-care (01) ==
LOC: PNCL 15:17
PROVIDERS: ATTEND Anesthesiology
DX: M51.16 Intervertebral disc disorders with radiculopathy, lumbar region (principal); M48.061 Spinal stenosis, lumbar region without neurogenic claudication; G47.30 Sleep apnea, unspecified; K21.9 Gastro-esophageal reflux disease without esophagitis; E11.9 Type 2 diabetes mellitus without complications; F17.210 Nicotine dependence, cigarettes, uncomplicated; Z79.82 Long term (current) use of aspirin; Z79.899 Other long term (current) drug therapy; Z88.0 Allergy status to penicillin
CPT/HCPCS: 99212; G0463

== ENCOUNTER → 2021-09-09 | Outpatient (CLI) | payer OTHER ==
[~2021-09-09] MED LIST changes: +HYDR-2769 PO; +IOHEXOL 180 MG/ML 10 ML VIAL. ONE
--- NOTE | 2021-09-09 09:03 | PDOC ---
Progress Note - Pain Clinic Date of Service: DOS: DATE: 09/09/21 TIME: 09:00 Diagnosis: Dx: Lumbar radiculopathy with lumbar degenerative disc disease and lumbar spinal stenosis History or Present Illness: HPI: 45-year-old male returns for follow-up status post lumbar epidural steroid injection x2. Patient reports does well but only for several days following the injection with about a 75% improvement initially pain returning in the low back and left lower extremity posterior gluteus posterior thigh lateral thigh anterior thigh medial thigh medial lower leg and into the foot patient reports it is anywhere from 7-9 on average at its worst is a 9 out of 10 and is a 5 on its least and is a 7 today patient reports sharp alternating with aching and dull tight and shooting in the left lower extremity cramping and stabbing in the back can be constant severe with walking standing better with sitting or laying down but laying on his stomach exacerbates the pain and awakens him from sleep at least once a night patient reports no loss of motor function no bowel or bladder incontinence but significant fatigability of the left leg patient is using crutches today which is new for him secondary to the weakness in the left leg. Patient does have difficulty finding a surgeon for consultation with except his insurance we discussed this in detail with he and his spouse and they will look for a provider from the insurance list itself that we need to make referral to if necessary. Physical Exam: VS: Blood pressure is 159/90 pulse 96 respirations 18 temperature is 98.6 F height is 6 foot weight is 291 pounds. PE: PHYSICAL EXAMINATION: GENERAL: The patient is awake, alert, oriented, appropriate, very pleasant in demeanor, patient Kumpe by his . HEENT: Shows normocephalic, atraumatic. Extraocular movements are intact and symmetrical. Oral cavity: Mucous membranes moist and pink. Dentition is intact. NECK: Shows anterior throat supple without palpable lymphadenopathy noted. Swallow reflex symmetrical. CHEST: Shows normal on inspection. Breath sounds are clear bilaterally, no rales or rhonchi auscultated. HEART: Shows S1, S2 clear. No murmurs auscultated. ABDOMEN: Soft, nontender, nondistended. No palpable organomegaly is noted. BACK: Shows spine grossly in the midline. Normal-appearing cervical lordotic curvature. There is slightly increased thoracic kyphosis, some mild flattening of the lumbar lordotic curvature. Lumbar paraspinous muscles show symmetrical on inspection, on palpation shows some moderate tenderness diffusely throughout the upper, middle and lower distribution of the paraspinous muscles without specific trigger points, without radiation of pain. The patient has good rotational motion of the lumbar spine, both laterally as well as extension and flexion without significant difficulty. No tenderness over the spinous processes, sacrum or sacroiliac regions. EXTREMITIES: Lower extremities show deep tendon reflexes to in the patellar and tendo calcaneus tendons. Motor exam is 5 on a scale of 5 with right dorsiflexion, extension, quadriceps and hamstring flexion and 4/5 on the left. Peripheral pulses are 1+ posterior tibial. No peripheral edema is noted bilaterally. Lower extremities are warm and dry to touch, equal in color and appearance. SKIN: Shows warm and dry, good turgor. No edema. No sores, rashes or bruising throughout. Procedure: Procedure: Options discussed with the patient. Patient's old chart was reviewed his current medication regimen updated current view systems updated today as well. We will proceed with a lumbar epidural steroid injection today with fluoroscopic guidance. Risks were discussed including but not limited to: Bleeding, infection, possibility of epidural hematoma and subsequent neurological compromise, dural puncture, headaches, spinal cord and/or nerve damage, side effects of steroid medication, and poor results regarding pain control. Patient understands and wished to proceed. Patient return to clinic in approximately 2 weeks for follow-up, was counseled as to return appointment, activity level, and side effect to be aware of. Medication Injected: Med Injected: Procedure is lumbar epidural steroid injection under local anesthetic using sterile prep and drape at the L4-5 level using C-arm fluoroscopic guidance in both AP and lateral views medications injected is 20 mg dexamethasone +10mL preservative-free normal saline and 2 mL contrast- condition at discharge is stable patient tolerated procedure well had no complications. Condition at Discharge: Condition at Discharge: Condition at discharge stable, paced tolerated procedure well and had no complications. TRES TREJO MD Sep 09, 2021 09:03
--- NOTE | 2021-09-09 09:03 | PDOC4 ---
Procedure Note: ICD 10 Code: ICD 10 Code: M54.16 M51.36 M4 8.06 Procedure Note: Patient was consented for lumbar epidural steroid injection fluoroscopic guidance. Risks were discussed including but not limited to: Bleeding, infection, possibility of epidural hematoma and subsequent neurological compromise, dural puncture, headaches, spinal cord and/or nerve damage, side effects of steroid medication, and poor results regarding pain control. Patient understands and wished to proceed. Procedure is lumbar epidural steroid injection under local anesthetic using sterile prep and drape at the L4-5 level using C-arm fluoroscopic guidance in both AP and lateral views medications injected is 20 mg dexamethasone +10mL preservative-free normal saline and 2 mL contrast- condition at discharge is stable patient tolerated procedure well had no complications. TRES TREJO MD Sep 09, 2021 09:03
== END | disposition home or self-care (01) ==
LOC: PNCL 08:15
PROVIDERS: ATTEND Anesthesiology
DX: M51.16 Intervertebral disc disorders with radiculopathy, lumbar region (principal); M48.061 Spinal stenosis, lumbar region without neurogenic claudication; G47.30 Sleep apnea, unspecified; K21.9 Gastro-esophageal reflux disease without esophagitis; E11.9 Type 2 diabetes mellitus without complications; F17.210 Nicotine dependence, cigarettes, uncomplicated; Z79.84 Long term (current) use of oral hypoglycemic drugs; Z79.899 Other long term (current) drug therapy; Z79.82 Long term (current) use of aspirin; Z88.0 Allergy status to penicillin; Z98.890 Other specified postprocedural states
CPT/HCPCS: 62323; Q9965